=== PATIENT | male | born 1945 | race Caucasian/White ===

== ENCOUNTER 2016-11-03 05:39 | Inpatient (IN) | payer OTHER ==
--- NOTE | 2016-11-02 17:32 | GHP ---
[f rep st] PREOP HISTORY AND PHYSICAL ADMISSION DIAGNOSIS: Adenocarcinoma of the prostate. HISTORY OF PRESENT ILLNESS: This is a gentleman who is 71 years of age. He has had a [place] score 7 with perineural invasion on a biopsy of the prostate from August 2016. His PSA pre-biopsy was 4.88 and he had a 4K score 26% and a Prolaris score of 3.5 and then a PSA density of 0.15. After discussion of his diagnosis, stage, and grade of cancer, he has elected to undergo bilateral pelvic lymphadenectomy and radical retropubic prostatectomy robotically assisted. Indications, complications, options have been well discussed. Risks of bleeding, infection, incontinence, lymphocele, rectal injury, and erectile dysfunction have all been discussed and written and verbal consent was obtained. He is admitted for the above procedure. PAST MEDICAL HISTORY: Chronic narcotic dependency in the past. Elevated PSA with prostate cancer. Gastric reflux, hypogonadism, sciatica, and testicular atrophy. PAST SURGERIES: Back surgery, inguinal hernia, knee, and leg. MEDICATIONS: Aleve, atorvastatin, levothyroxine, Pepcid. ALLERGIES: No known drug allergies. FAMILY HISTORY: Positive for stomach cancer and seizures. SOCIAL HISTORY: Rare alcohol consumption. He has never smoked. He is . REVIEW OF SYSTEMS: Negative cardiac, respiratory, GI, and endocrine. PHYSICAL EXAM: VITAL SIGNS: Stable. CHEST: Clear. HEART: Regular rate and rhythm. ABDOMEN: Normal. No organomegaly, rebound, or guarding. EXTREMITIES : Lower extremities are normal. LABS: Labs reviewed have been the PSA of 5.0. The PSA density is 0.15 to 0.17. Pathology and associated have been discussed. He is admitted for the above procedure. Indications, complications, options, again have been discussed and written and verbal consent was obtained. /[id number]/MODL MTDD
[2016-11-03] MEDS ORDERED: ceFAZolin 2 GM/DEXTROSE 100 ML IV ONE (06:00)
[2016-11-03] MEDS ORDERED: LIDOCAINE 1% 5 ML SDV ONE (06:14)
[2016-11-03] MEDS ORDERED: PROPOFOL 200 MG/20 ML VIAL ONE (06:58)
[2016-11-03] MEDS ORDERED: fentaNYL 100 MCG/2 ML INJ ONE ×3 (06:58→11:01)
[2016-11-03] MEDS ORDERED: ROCURONIUM 50 MG/5 ML VIAL ONE ×2 (07:04→08:48)
[2016-11-03] MEDS ORDERED: ONDANSETRON 4 MG/2 ML VIAL ONE (07:04)
[2016-11-03] MEDS ORDERED: METOCLOPRAMIDE 10 MG/2 ML VIAL ONE (07:04)
[2016-11-03] MEDS ORDERED: MIDAZOLAM 2 MG/2 ML VIAL ONE (07:10)
[2016-11-03] MEDS ORDERED: BUPIVACAINE 0.5% 30 ML SDV ONE (07:13)
[2016-11-03] MEDS ORDERED: SKIN ADHESIVE (DERMABOND) 1 EACH TP ONE (07:13)
[2016-11-03] MEDS ORDERED: THROMBIN(HUM PLAS)/FIBRINOG/CA 5 ML VIAL TP ONE (09:10)
[2016-11-03] MEDS ORDERED: epHEDrine SULFATE 10 MG/ML SYR ONE (09:50)
[2016-11-03] MEDS ORDERED: ACETAMINOPHEN/CODEINE 300/30MG TAB PO PRN (10:38)
[2016-11-03] MEDS ORDERED: ONDANSETRON 4 MG/2 ML VIAL IVP PRN (10:40)
[2016-11-03] MEDS ORDERED: ONDANSETRON DISINTEGRATING 4 MG TAB PO PRN (10:40)
[2016-11-03] MEDS ORDERED: ACETAMINOPHEN 325 MG TAB PO PRN (10:40)
--- NOTE | 2016-11-03 11:21 | GOP ---
[f rep st] OPERATIVE REPORT DATE OF OPERATION: 11/03/2016 SURGEON: Cesar Velarde MD IMAGING ASSISTANT: Loli Patel. PREOPERATIVE DIAGNOSIS: Adenocarcinoma of the prostate. POSTOPERATIVE DIAGNOSIS: Adenocarcinoma of the prostate. PROCEDURE PERFORMED: Robotic-assisted radical prostatectomy and bilateral pelvic lymphadenectomy. FINDINGS: SPECIMENS: Bilateral pelvic lymph nodes which grossly were normal and the prostate which was grossly normal but had a significant amount of inflammatory reaction at the right base. ESTIMATED BLOOD LOSS: 50 mL. DESCRIPTION OF PROCEDURE: After appropriate time-out and identifying the patient in the appropriate operation and confirming the sterility of the room and the adequacy of the equipment, and being posit ioned on the table in a safe position, he was prepped and draped in normal sterile fashion. An Ioban was placed over the abdominal skin, and a Veress needle was placed supraumbilically to insufflate th e abdomen to 15 mmHg pressure. Then at that point, three 8 mm ports and one 12 mm commercial lines account assistant port wer e placed in the normal strategic positions. Then, the utilization of the bipolar, monopolar and ProG rasps were used for dissection. We started by taking down the intraabdominal adhesions from a prior left inguinal hernia. He had significant adhesions there. That was taken down so I could mobilize t he sigmoid colon. We then brought the sigmoid out of the pelvis, and the posterior dissection was st arted by identifying the ampule of vas deferens, sweeping front and back of those structures, identif trenton the seminal vesicles. Hemostasis by hemoclips and bipolar electrocautery. Freed up the anterio r rectal wall separate from the prostate going through Denonvilliers fascia, and then at that point, dropped the bladder down after taking down the urachus and the obliterated umbilical arteries. Ident ified the endopelvic fascia on the right and left sides, and then hemostasis was provided with bipola r. Puboprostatics taken down sharply. Used an 0 Vicryl to do an M stitch closure or occlusion of th e deep dorsal vein of the penis; two of those were done. Then, at that point, posterior tissue of th e bladder neck, which was taken down sharply in meticulous dissection, not to leave any prostate behi nd and not to buttonhole the bladder. I was able to get posterior to the bladder neck and bring the ampulla vas deferens, seminal vesicles up anteriorly. Then, hemostasis and dissection were performed with the tissue sealer bipolar instrument, and attempts to preserve the vascular bundles on the left side and then on the right side went way lateral because of the inflammatory reaction and the perine ural invasion in the biopsy specimen. The apex of the prostate was dissected out and meticulous care not to leave prostate behind. Then, the approximation of the bladder neck started with a Michael stit ch of V-Loc of the Denonvilliers and the rectal urethralis muscle, and then the anastomosis was perfo rmed using a 4-0 Monocryl double-armed. I did approximate the bladder neck on the right side because it was a bit patulous on that side. Then, the anastomosis bridged with the Higgins catheter and irrig ated, and was noted to be water tight. I used a tissue sealant to go circumferentially around the an astomosis. Then, the bilateral pelvic lymphadenectomy was performed, starting on the right side, vivian ing the dissection margin in the mid aspect of the external iliac vein up to the bifurcation. The ob turator nerve , and hemostasis provided with electrocautery and Hem-o-Loks. That was sent for specimen separately. Then, the left pelvic lymphadenectomy was performed the same way. A 10 Micky kson-Grier flat drain was placed into the into the space of Retzius and positioned appropriately. Al l the specimen had been placed in a bag. Eventually, the bag was delivered through the supraumbilica l port site after expanding it, and closed the 12 mm port with a suture ligature device and 0 Vicryl approximated at the linea alba in the midline after removing the specimen, and then the subcutaneous tissue was hemostatic and the skin was closed with a 4-0 Monocryl intradermal Dermabond over the top of that. The catheter was draining well. The patient will be admitted for postoperative care. I wi ll discuss the findings with his . /[id number]/MODL
[2016-11-03] MEDS ORDERED: HYDROmorphONE/DILAUDID 2 MG/ML SYR ONE (12:18)
[2016-11-03] MEDS: D5W 1/2 NS 1,000 ML IV SCH (17:55)
[2016-11-03] MEDS ORDERED: ATORVASTATIN CALCIUM 10 MG TAB PO SCH (21:00)
[2016-11-03] MEDS: OXYCODONE/APAP 5/325 TAB PO PRN (23:10)
[2016-11-04] MEDS: D5W 1/2 NS 1,000 ML IV SCH (03:33)
[2016-11-04 05:27] LABS: % IMMATURE GRANULYOCYTES 0.3 % (0.0-1.1); ABSOLUTE IMMATURE GRANULOCYTES 0.03 10^3/uL (0.00-0.10); ADD DIFF? NO; ADD MORPH? NO; ADD SCAN? NO; ATYPICAL LYMPHOCYTE FLAG 10 (0-99); FRAGMENT RBC FLAG 0 (0-99); HEMATOCRIT 39.1 % (40.0-51.0); HEMOGLOBIN 13.7 g/dL (13.7-17.5); LEFT SHIFT FLG 0 (0-99); LIPEMIA HEMOLYSIS FLAG 90 (0-99); MEAN CELL HEMOGLOBIN 30.9 pg (27.9-34.1); MEAN CELL VOLUME 88.3 fL (81.5-99.8); MEAN PLATELET VOLUME 8.8 fL (8.7-11.7); PLATELET CLUMPS FLAG 0 (0-99); PLATELET COUNT 211 10^3/uL (150-400); RED BLOOD CELL COUNT 4.43 10^6/uL (4.40-6.38); RED CELL DISTRIBUTION WIDTH 12.3 % (11.5-15.2)
[2016-11-04 05:36] LABS: ANION GAP 5 mEq/L (8-16); CALCIUM 8.1 mg/dL (8.5-10.4); CARBON DIOXIDE 26 mEq/l (22-31); CHLORIDE 106 mEq/L (97-110); CREATININE 0.9 mg/dL (0.7-1.3); GLOMERULAR FILTRATION RATE > 60; GLUCOSE 108 mg/dL (70-100); POTASSIUM 4.1 mEq/L (3.5-5.2); SODIUM 137 mEq/L (134-144)
[2016-11-04] MEDS ORDERED: LEVOTHYROXINE 50 MCG TAB PO SCH (06:00)
[2016-11-04 07:43] VITALS: BP 112/68; PULSE 85; RESP 14; TEMP 99; O2SAT 93
[2016-11-04] MEDS: OXYCODONE/APAP 5/325 TAB PO PRN ×2 (08:17→11:29)
[2016-11-04] MEDS ORDERED: Herbals/Supplements -Info Only PO SCH (09:00)
[2016-11-04] MEDS ORDERED: CHOLECALCIFEROL VIT D3 1,000 UNITS TAB PO SCH (09:00)
[2016-11-04] MEDS ORDERED: CYANO/VITAMIN B12 1000 MCG TAB PO SCH (09:00)
--- NOTE | 2016-11-04 13:05 | GDS ---
[f rep st] DISCHARGE SUMMARY PREOPERATIVE DIAGNOSIS: Prostate cancer. POSTOPERATIVE DIAGNOSIS: Prostate cancer. HOSPITAL COURSE: This is a pleasant gentleman who was evaluated in our office and found to have prostate cancer. After a full discussion of his options, he elected to undergo a radical robotic prostatectomy with pelvic lymph node dissection. He underwent this procedure without difficulty. He is being discharged home in good condition. PLAN: He will follow up in our office in 10 days for catheter removal and discussion of any pathology results available at that time. /[id number]/MODL MTDD
== END 2016-11-04 12:58 | disposition home or self-care (01) | DRG 708 ==
LOC: F1N 05:39
PROVIDERS: ADMIT Specialist; ATTEND Specialist
PROC: 07BC4ZZ Excision of Pelvis Lymphatic, Percutaneous Endoscopic Approach (ICD-10-PCS; principal; 2016-11-03 07:15)
PROC: 8E0W4CZ Robotic Assisted Procedure of Trunk Region, Percutaneous Endoscopic Approach (ICD-10-PCS; principal; 2016-11-03 07:15)
PROC: 0VT04ZZ Resection of Prostate, Percutaneous Endoscopic Approach (ICD-10-PCS; principal; 2016-11-03 07:15)
DX: C61 Malignant neoplasm of prostate (principal); K21.9 Gastro-esophageal reflux disease without esophagitis; E03.9 Hypothyroidism, unspecified; F17.200 Nicotine dependence, unspecified, uncomplicated
CPT/HCPCS: J0690; J1170; J2250; J2405; J2704; J2765; J3010